=== PATIENT | female | born 1950 | race Caucasian/White ===

== ENCOUNTER 2020-06-16 13:32 | Inpatient (IN) ==
[2020-06-16] MEDS ORDERED: CeFAZolin Syr 2,000MG/20 ML 2,000 MG/20 ML SYRINGE IVPB ONE (14:16)
[2020-06-16] MEDS ORDERED: Ondansetron 4 MG/2 ML VIAL ONE (14:18)
[2020-06-16] MEDS ORDERED: Lidocaine -MPF 2% 2 ML VIAL ONE (14:18)
[2020-06-16] MEDS ORDERED: *HR* Succinylcholine 200 MG/10 ML VIAL IVP ONE (14:18)
[2020-06-16] MEDS ORDERED: Acetaminophen IV 1,000 MG/100 ML INFUS..BTL IVPB ONE (14:30)
[2020-06-16] MEDS ORDERED: Ringers Solution, Lactated 1,000 ML IVC SCH ×2 (14:30→17:56)
[2020-06-16] MEDS ORDERED: *HR* OxyCODONE Immed Rel 5 MG TABLET PO PRN ×2 (14:31→17:56)
[2020-06-16] MEDS ORDERED: Ondansetron 4 MG/2 ML VIAL IVP ONE (14:31)
[2020-06-16] MEDS ORDERED: *HR* HYDROmorphone PF 0.5 MG/0.5 ML SYRINGE IVP PRN (14:31)
[2020-06-16] MEDS ORDERED: *HR* FentaNYL (PF) 100 MCG/2 ML VIAL ONE (14:45)
[2020-06-16] MEDS ORDERED: ROPIVACAINE/PF/NS 0.25% 1 EACH SYRINGE INTRAART ONE (14:56)
[2020-06-16] MEDS ORDERED: Ropivacaine/PF 0.5% 30 ML VIAL ONE (14:56)
[2020-06-16] MEDS ORDERED: Vancomycin 1,000 MG VIAL ONE (15:16)
[2020-06-16] MEDS ORDERED: Ethanol\\Acetic Acid\\Na Ace\\Ben 1,000 ML IRRIG.SOLN IR ONE (15:16)
[2020-06-16] MEDS ORDERED: Lidocaine -MPF 4% 5 ML AMPUL ONE (15:17)
[2020-06-16] MEDS ORDERED: EPHEDrine 50 MG/ML VIAL ONE (15:46)
[2020-06-16] MEDS ORDERED: Dexamethasone 4 MG/ML VIAL ONE (16:02)
[2020-06-16] MEDS ORDERED: *HR* Propofol 200 MG/20 ML VIAL IVP ONE ×2 (16:03→16:18)
[2020-06-16] MEDS ORDERED: *HR* PHENYLEPHRINE 1,000 MCG/10 ML SYRINGE IVP ONE (16:45)
[2020-06-16 17:24] LABS: Hematocrit 28.5 % (35.3-44.9)
[2020-06-16 17:25] LABS: Hemoglobin 9.6 g/dL (11.5-15.4)
[2020-06-16] MEDS ORDERED: *HR* OxyCODONE/APAP 5/325 TABLET PO PRN (17:56)
[2020-06-16] MEDS ORDERED: Ondansetron 4 MG/2 ML VIAL IVP PRN (17:56)
[2020-06-16] MEDS ORDERED: D5% in Water 1,000 ML IVC PRN (17:56)
[2020-06-16] MEDS ORDERED: *HR* Dextrose 50 % in Water (Vial) 50 ML VIAL IVP PRN (17:56)
[2020-06-16] MEDS ORDERED: Naloxone 0.4 MG/ML INJ IVP PRN (17:56)
[2020-06-16] MEDS ORDERED: Sennosides 8.6 MG TABLET PO PRN (17:56)
[2020-06-16] MEDS ORDERED: Dextrose Gel 15 GM/37.5 ML TUBE PO PRN ×2 (17:56)
[2020-06-16] MEDS ORDERED: MOM Conc 10 ML UD.LIQ PO PRN (17:56)
[2020-06-16] MEDS ORDERED: *HR* Enoxaparin 30 MG/0.3 ML SYRINGE SQ SCH (18:00)
[2020-06-16] MEDS: *HR* Enoxaparin 30 MG/0.3 ML SYRINGE SQ SCH (18:18)
[2020-06-16] MEDS: Insulin LISPRO 300 UNITS/3 ML VIAL SQ SCH (18:44)
[2020-06-16] MEDS ORDERED: Insulin LISPRO 300 UNITS/3 ML VIAL SQ SCH (21:00)
[2020-06-16] MEDS: CeFAZolin 2 GM/120 ML BAG IVPB SCH (23:17)
[2020-06-17 01:44] LABS: Hematocrit 25.6 % (35.3-44.9); Hemoglobin 8.9 g/dL (11.5-15.4)
[2020-06-17 02:04] LABS: BUN/Creatinine Ratio 27 (6-26); Blood Urea Nitrogen 25 mg/dL (8-23); Calcium 9.1 mg/dL (8.6-10.3); Carbon Dioxide 26 mEq/L (23-29); Chloride 102 mEq/L (98-107); Glucose 187 mg/dL (70-105); Osmolality,Calculated 291 (280-300); Potassium 4.1 mEq/L (3.5-5.1); Sodium 136 mEq/L (136-145); eGFR For African Americans > 60 (> 60); eGFR For Non-African Americans > 60 (> 60)
[2020-06-17] MEDS: *HR* Enoxaparin 30 MG/0.3 ML SYRINGE SQ SCH (05:12)
[2020-06-17 06:52] VITALS: BP 122/72
[2020-06-17] MEDS: CeFAZolin 2 GM/120 ML BAG IVPB SCH (08:08)
[2020-06-17] MEDS: Insulin LISPRO 300 UNITS/3 ML VIAL SQ SCH (08:10)
[2020-06-17] MEDS ORDERED: allopurinoL 300 MG TABLET PO SCH (09:00)
[2020-06-17] MEDS ORDERED: Bisoprolol/HCTZ 5/6.25 TABLET PO SCH (09:00)
== END 2020-06-17 10:35 | disposition home or self-care (01) | DRG 483 ==
LOC: SAMDAY 13:32 → 3NENU 17:42
PROVIDERS: ADMIT Orthopaedic Surgery; ATTEND Orthopaedic Surgery